=== PATIENT | male | born 1955 | race Caucasian/White ===

== ENCOUNTER 2017-03-15 23:27 | Emergency (ER) | payer BC, MEDICARE, OTHER ==
[2017-03-15] MEDS ORDERED: Proparacaine 0.5% Opth 15 ML BOT ONE (23:37)
[2017-03-15] MEDS ORDERED: Fluorescein Opthalmic Strip ONE (23:37)
[2017-03-16] MEDS ORDERED: Erythromycin Base 0.5% Oint 1 GM TUBE ONE (00:11)
== END 2017-03-16 00:10 | disposition home or self-care (01) ==
LOC: SCSER 23:27
DX: T15.01XA Foreign body in cornea, right eye, initial encounter (principal); I25.2 Old myocardial infarction; I10 Essential (primary) hypertension; F17.200 Nicotine dependence, unspecified, uncomplicated
CPT/HCPCS: 65220

== ENCOUNTER 2018-03-04 18:04 | Emergency (ER) | payer BC ==
[2018-03-04] MEDS ORDERED: Fluorescein Opthalmic Strip ONE (18:33)
== END 2018-03-04 18:50 | disposition home or self-care (01) ==
LOC: SCSER 18:04
DX: H57.89 Other specified disorders of eye and adnexa (principal); I10 Essential (primary) hypertension; I25.2 Old myocardial infarction; Z79.899 Other long term (current) drug therapy
CPT/HCPCS: 99283